=== PATIENT | female | born 1960 | race Caucasian/White ===

== ENCOUNTER 2018-08-17 07:37 | Inpatient (IN) | payer OTHER ==
[~2018-08-17] VITALS: Ht 160 cm; Wt 62.6 kg
[~2018-08-17 07:37] MED LIST: FLAGYL500 MG PO; FOLIC ACID1 MG PO; IBU800 M1 PO; LAC PO; LEVAQUIN500 MG PO; MET2.5 PO; PRILOSEC20 MG PO
[2018-08-17 07:43] VITALS: Ht 160 cm; Wt 62.6 kg
[2018-08-17 08:22] LABS: BASOPHIL % 0.6 % (0-2)
[2018-08-17 08:47] LABS: CALCIUM 8.3 mg/dL (8.5-10.1); CARBON DIOXIDE 25.3 mmol/L (21-32); CHLORIDE SERUM 106 mmol/L (98-107); CREATININE SERUM 0.5 mg/dL (0.6-1.0); GFR1 > 60 mL/min; GLUCOSE SERUM 123 mg/dL (74-106); POTASSIUM SERUM 4.4 mmol/L (3.5-5.1); SODIUM SERUM 139 mmol/L (136-145)
[2018-08-17 08:51] LABS: ALKALINE PHOSPHATASE 54 U/L (46-116); ALT/SGPT 16 U/L (14-59); AST/SGOT 11 U/L (15-37); TOTAL PROTEIN, SERUM 6.9 g/dL (6.4-8.2)
[2018-08-17 08:52] LABS: RED CELL DISTRIBUTION WIDTH 19.1 % (11.5-14.5)
[2018-08-17 08:56] LABS: ALBUMIN 3.3 g/dL (3.4-5.0)
[2018-08-17] MEDS ORDERED: METHOTREXATE SOD (10:05)
[2018-08-17] MEDS ORDERED: OMEPRAZOLE40 M1 PO (10:06)
[2018-08-17 10:34] LABS: rbc morphology (normal/abnorm) ABNORMAL (NORMAL)
[2018-08-17 11:12] VITALS: BP 107/61
[2018-08-17 11:30] LABS: PHOSPHOROUS 3.3 mg/dL (2.5-4.9)
[2018-08-17 11:31] LABS: CHOLESTEROL/HDL RATIO 5.7
[2018-08-17 11:41] LABS: IRON 95 ug/dL (50-170)
[2018-08-17 11:48] LABS: TOTAL IRON BINDING CAPACITY 460 ug/dL (250-450)
[2018-08-17 12:07] LABS: RED BLOOD CELLS 2.81 M/mm3 (4.10-5.10)
[2018-08-17 14:20] LABS: PLATELET COUNT 492 x10^3mcL (130-400)
[2018-08-17 15:48] VITALS: BP 102/58
[2018-08-17 16:51] LABS: PLATELET COUNT 446 x10^3mcL (130-400)
[2018-08-17 21:22] VITALS: BP 105/63
[2018-08-17 23:19] LABS: microscopic required? NO
[2018-08-18 00:12] LABS: urine erythrocyte NEGATIVE (NEGATIVE)
[2018-08-18 05:06] VITALS: BP 102/48
[2018-08-18 06:50] LABS: CALCIUM 8.2 mg/dL (8.5-10.1); CARBON DIOXIDE 22.5 mmol/L (21-32); CHLORIDE SERUM 109 mmol/L (98-107); CREATININE SERUM 0.5 mg/dL (0.6-1.0); GFR1 > 60 mL/min; GLUCOSE SERUM 97 mg/dL (74-106); MAGNESIUM 2.1 mg/dL (1.8-2.4); PHOSPHOROUS 3.6 mg/dL (2.5-4.9); POTASSIUM SERUM 4.2 mmol/L (3.5-5.1); SODIUM SERUM 141 mmol/L (136-145)
[2018-08-18 07:36] LABS: BASOPHIL % 0.6 % (0-2)
[2018-08-18 07:37] LABS: PLATELET COUNT 414 x10^3mcL (130-400); RED CELL DISTRIBUTION WIDTH 19.5 % (11.5-14.5)
[2018-08-18 09:39] VITALS: BP 95/53
[2018-08-18 12:15] VITALS: BP 103/57
[2018-08-18] MEDS ORDERED: NATURAL IRON65 MG PO (16:19)
[2018-08-18] MEDS ORDERED: METP PO (16:19)
[2018-08-18 17:02] VITALS: BP 114/69
[2018-08-18 17:18] VITALS: BP 112/66
== END 2018-08-18 18:28 | disposition home or self-care (01) | DRG 377 ==
LOC: ED 07:37 → DU 09:59
PROVIDERS: General Practice; Internal Medicine Gastroenterology; Specialist
PROC: 3E02340 Introduction of Influenza Vaccine into Muscle, Percutaneous Approach (ICD-10-PCS; 2018-08-17)
PROC: 0DB68ZX Excision of Stomach, Via Natural or Artificial Opening Endoscopic, Diagnostic (ICD-10-PCS; principal; 2018-08-18 11:30)
PROC: 0DJD8ZZ Inspection of Lower Intestinal Tract, Via Natural or Artificial Opening Endoscopic (ICD-10-PCS; 2018-08-18 11:30)
DX: K92.2 Gastrointestinal hemorrhage, unspecified (principal); N17.0 Acute kidney failure with tubular necrosis; E44.1 Mild protein-calorie malnutrition; D50.0 Iron deficiency anemia secondary to blood loss (chronic); K57.30 Diverticulosis of large intestine without perforation or abscess without bleeding; R73.03 Prediabetes; K64.9 Unspecified hemorrhoids; M06.9 Rheumatoid arthritis, unspecified; Z66 Do not resuscitate; K21.9 Gastro-esophageal reflux disease without esophagitis; Z68.24 Body mass index [BMI] 24.0-24.9, adult; Z79.1 Long term (current) use of non-steroidal anti-inflammatories (NSAID); Z83.3 Family history of diabetes mellitus; Z82.49 Family history of ischemic heart disease and other diseases of the circulatory system; Z80.1 Family history of malignant neoplasm of trachea, bronchus and lung; Z98.51 Tubal ligation status; Z23 Encounter for immunization
CPT/HCPCS: 43235; 45378; 90658; C9113; J1200; J1610; J2250; J2310; J2405; J2916; J3010; J3490; J7030; P9016; Q0092; Q0163

== ENCOUNTER 2018-09-11 14:33 | Emergency (ER) | payer OTHER ==
[~2018-09-11] VITALS: Ht 167.6 cm; Wt 60.3 kg
[~2018-09-11 14:33] MED LIST changes: +METHOTREXATE SOD; +METP PO; +NATURAL IRON65 MG PO; +OMEPRAZOLE40 M1 PO
[2018-09-11 14:41] VITALS: Ht 167.6 cm; Wt 60.3 kg
[2018-09-11 15:23] LABS: PLATELET COUNT 403 x10^3mcL (130-400); RED CELL DISTRIBUTION WIDTH 24.3 % (11.5-14.5)
[2018-09-11 15:33] LABS: CARBON DIOXIDE 27.9 mmol/L (21-32); CHLORIDE SERUM 103 mmol/L (98-107); CREATININE SERUM 0.6 mg/dL (0.6-1.0); GFR1 > 60 mL/min; GLUCOSE SERUM 127 mg/dL (74-106); POTASSIUM SERUM 3.6 mmol/L (3.5-5.1); SODIUM SERUM 140 mmol/L (136-145)
[2018-09-11 15:36] LABS: BAND NEUTROPHIL 1 % (0-10); BASOPHIL 0 % (0-2); MONOCYTE 3 % (0-7); SEGMENTED NEUTROPHILS 85 % (37-75); rbc morphology (normal/abnorm) ABNORMAL (NORMAL)
[2018-09-11 15:37] LABS: PLATELET MORPHOLOGY PLATELETS NORMAL; ovalocyte/elliptocyte 1+
[2018-09-11 15:39] LABS: ALBUMIN 3.9 g/dL (3.4-5.0); ALKALINE PHOSPHATASE 74 U/L (46-116); AMYLASE 44 U/L (25-115); AST/SGOT 13 U/L (15-37); BILIRUBIN TOTAL 0.33 mg/dL (0.20-1.00); LIPASE 78 IU/L (73-393); TOTAL PROTEIN, SERUM 7.6 g/dL (6.4-8.2)
[2018-09-11 15:49] LABS: ALT/SGPT 26 U/L (14-59)
[2018-09-11 18:50] VITALS: BP 120/75
== END 2018-09-11 18:50 | disposition home or self-care (01) ==
LOC: ED 14:33
PROVIDERS: Emergency Medicine
DX: R10.13 Epigastric pain (principal); Z87.19 Personal history of other diseases of the digestive system
CPT/HCPCS: J1885; J2405; Q0092

== ENCOUNTER 2019-06-27 09:01 | Inpatient (IN) | payer OTHER ==
[~2019-06-27] VITALS: Ht 160 cm; Wt 57.6 kg
[2019-06-27 09:12] VITALS: Ht 160 cm; Wt 57.6 kg
--- NOTE | 2019-06-27 09:15 | NUR ---
EDUCATED PT TO GIVE CLEAN CATCH URINE SPECIMEN, AMBULATED TO RESTROOM, THEN TO ED LOBBY TO AWAIT ED BED, NO ACUTE DISTRESS NOTED.
--- NOTE | 2019-06-27 09:33 | NUR ---
PT BIB C/O R FLANK PAIN RADIATING TO RUQ X4 WEEKS WITH DYSURIA AND "DARK ALMOST BLACK STOOL SINCE JULY AFTER I STARTED TAKING IRON FOR MY ANEMIA", PT REPORTS DIZZINESS THIS AM, DENIES AT THIS TIME. PT DENIES CP, SOB, AND WEAKNESS. PT'S AT BEDSIDE, NAD NOTED, RESPS E/U. CALL LIGHT WITHIN REACH, IN POSITION OF COMFORT, EVANGELINA RAILS RAISED FOR SAFETY.
--- NOTE | 2019-06-27 10:25 | NUR ---
DR JORGE AT BEDSIDE FOR MSE.
--- NOTE | 2019-06-27 10:26 | NUR ---
PT STS SHE WAS HERE IN 2017 AND RECEIVED A BLOOD TRANSFUSION FROM A GI BLEED. DR JORGE AT BEDSIDE.
--- NOTE | 2019-06-27 10:45 | NUR ---
XRAY AT BEDSIDE.
[2019-06-27 10:54] LABS: microscopic required? NO
--- NOTE | 2019-06-27 11:00 | NUR ---
US AT BEDSIDE.
--- NOTE | 2019-06-27 11:00 | NUR ---
ATTEMPTED TO DO ORHTOSTATICS, US AT BEDSIDE WAITING, PER DR LUISITO MESSINA TO HOLD ORTHOSTATS AND COMPLETE US.
[2019-06-27 11:01] LABS: BASOPHIL % 0.4 % (0-2); PLATELET COUNT 282 x10^3mcL (130-400); RED CELL DISTRIBUTION WIDTH 14.6 % (11.5-14.5)
[2019-06-27 11:02] LABS: UA SPECIFIC GRAVITY <=1.005 (1.005-1.035); urine erythrocyte NEGATIVE (NEGATIVE)
[2019-06-27 11:17] LABS: CARBON DIOXIDE 28.4 mmol/L (21-32); CHLORIDE SERUM 105 mmol/L (98-107); CREATININE SERUM 0.6 mg/dL (0.6-1.0); GFR1 > 60 mL/min; GLUCOSE SERUM 104 mg/dL (74-106); POTASSIUM SERUM 4.1 mmol/L (3.5-5.1); SODIUM SERUM 142 mmol/L (136-145)
[2019-06-27 11:30] LABS: ALBUMIN 4.1 g/dL (3.4-5.0); ALKALINE PHOSPHATASE 53 U/L (46-116); ALT/SGPT 27 U/L (14-59); AST/SGOT 15 U/L (15-37); BILIRUBIN TOTAL 0.6 mg/dL (0.20-1.00); CHOLESTEROL 198 mg/dL (<200); HDL CHOLESTEROL 36 mg/dL (40-60); LIPASE 83 IU/L (73-393); T4(THYROXINE) 9.8 ug/dL (4.7-13.3); TOTAL PROTEIN, SERUM 7.1 g/dL (6.4-8.2)
--- NOTE | 2019-06-27 11:47 | NUR ---
PT MEDICATED PER EMAR, NAD NOTED, ON FULL CM, DAUGHTER AT BEDSIDE.
[2019-06-27] MEDS ORDERED: [UNRECOGNIZED DRUG - OTHER] IM (12:23)
[2019-06-27] MEDS ORDERED: TYLENOL ARTHRI650 MG PO (12:23)
[2019-06-27] MEDS ORDERED: MASON NATURAL1000 IU PO (12:24)
[2019-06-27] MEDS ORDERED: VITRON C PO (12:24)
[2019-06-27] MEDS ORDERED: NATURE'S BLEND F1 MG PO (12:25)
--- NOTE | 2019-06-27 13:36 | NUR ---
RPEORT GIVEN TO EDISON ALFARO TO ASSUME CARE OF PT.
[2019-06-27 14:42] VITALS: BP 115/63
--- NOTE | 2019-06-27 14:53 | NUR ---
RECEIVED PT FROM ER, PT ADMIT FOR GI BLEED, PT IS A/O X4, VERBAL RESPONSIVE, LUNG SOUND CLEAR BILATERAL, NO COUGH, NO SOB, PT IS ON TELE 4, NSR, DENY ANY CHEST PAIN OR DISCOMFORT, BOWEL SOUND PRESENT ALL 4 QUADRANTS, NO DISTENTION, PT C/O RIGHT FLANK PAIN 10/, STATE HAD BEEN BLACK STOOL SINCE LAST YEAR BECAUSE SHE TAKES IRON PILLS, PEDAL PULSE PRESENT BOTH FEET, NO EDEMA, IV AT RIGHT HAND, NO LEAKING, NO INFITLRATION. ALL ADLS ASSIST, ALL NEED MET, CALL LIGHT IN REACH, WILL CONTINUE TO MONITOR.
[2019-06-27 17:08] VITALS: BP 136/73
--- NOTE | 2019-06-27 18:20 | NUR ---
DR. CORTES IS AT BEDSIDE TO SEE THE PATIENT AND TALKS TO THE FAMILY.
--- NOTE | 2019-06-27 18:41 | NUR ---
PATIENT IS RESTING IN BED WITH RELIEVED PAIN AT RIGHT FLANK. THE PATIENT TOLERATED WITH REGULAR DIET. THE FAMILY IS AT BEDSIDE.
--- NOTE | 2019-06-27 19:18 | NUR ---
Text message Dr Fuentes to get approval for MRI/MRCP to r/o CBD stricture or stone. awaiting approval.
--- NOTE | 2019-06-27 19:22 | NUR ---
received approval from dr Fuentes.
--- NOTE | 2019-06-27 19:23 | NUR ---
spoke to SAURAV chery and informed her that Dr Fuentes approved MRI.
--- NOTE | 2019-06-27 19:37 | NUR ---
spoke to assigned nurse nixon-terri, informed her that an approval was given by Dr Fuentes for MRI/MRP CBD TO r/o stricture/stone.
--- NOTE | 2019-06-27 19:45 | NUR ---
PT. AWAKE, ALERT, ORIENTED X4. DENIES HEADACHE OR DIZZINESS. BREATH SOUNDS CLEAR THROUGHOUT LUNG BENOIT, RESP. EVEN, UNLABORED. NO SOB NOTED. PT. ON RA. ABD. SOFT AND ROUND, BOWEL SOUNDS ACTIVE. C/O INTERMITTENT ABD PAIN THAT RADIATES FROM HER BACK AREA, FLANK SIDE. DENIES NAUSEA. NO EDEMA NOTED TO BLE. PEDAL PULSES STRONG EVANGELINA. IVF INFUSING WELL, SITE INTACT. FAMILY AT BEDSIDE.
[2019-06-27 21:07] VITALS: BP 127/67
--- NOTE | 2019-06-27 22:15 | NUR ---
PT. C/O ABD. PAIN. PRN MORPHINE WAS GIVEN ORDERED. PT. RESTING QUIETLY NOW, EYES CLOSED. NO OBVIOUS SIGNS OF DISTRESS. WILL MONITOR.
--- NOTE | 2019-06-27 22:17 | NUR ---
RECEIVED REPORT FROM DAY NURSE REGARDING PT.'S MRI MRCP FOR TOMORROW. PER FABRICIO, MOBILITY DEVELOPER, PROCEDURE WAS AUTHORIZED. AUTO CLAIMS ADJUSTER, DESTINI, STATED THAT HE WAS NOT SURE IF HE WOULD BE AVAILABLE TOMORROW FOR PLANNED MRCP. DR. PHELPS WAS MADE AWARE AND DR. CORTES WAS ALSO MADE AWARE. AUTO CLAIMS ADJUSTER STATED THAT HE WOULD BE AVAILABLE ON THURSDAY TO DO EXAM. DR. CORTES MADE AWARE AND STATED THAT IT WAS OKAY TO DO PROCEDURE ON THURSDAY. AUTO CLAIMS ADJUSTER, DESTINI, STATED THAT PROCEDURE COULD BE DONE ON Thursday.
[2019-06-28 00:35] LABS: AMPHETAMINE QUAL UR NONE DETECTED (See below)
--- NOTE | 2019-06-28 02:06 | NUR ---
PT. AWAKENED, USED BATHROOM AND WENT BACK TO BED. PT. DEVELOPED INCREASED IN ABD PAIN, RT. QUADRANT WHICH SOMETIMES RADIATES FROM HER RT. FLANK AREA TO HER STOMACH. PAIN LEVEL 6/10. PRN MORPHINE IVP GIVEN ORDEREF. WILL MONITOR. CALL LIGHT REMAINS WITHIN REACH.
[2019-06-28 05:42] VITALS: BP 99/56
[2019-06-28 06:45] LABS: ALKALINE PHOSPHATASE 38 U/L (46-116); ALT/SGPT 23 U/L (14-59); AST/SGOT 12 U/L (15-37); BILIRUBIN TOTAL 0.8 mg/dL (0.20-1.00); CALCIUM 8.1 mg/dL (8.5-10.1); CARBON DIOXIDE 27.3 mmol/L (21-32); CHLORIDE SERUM 112 mmol/L (98-107); CREATININE SERUM 0.5 mg/dL (0.6-1.0); GFR1 > 60 mL/min; GLUCOSE SERUM 85 mg/dL (74-106); POTASSIUM SERUM 3.7 mmol/L (3.5-5.1); SODIUM SERUM 144 mmol/L (136-145)
[2019-06-28 06:55] LABS: ALBUMIN 3.3 g/dL (3.4-5.0); TOTAL PROTEIN, SERUM 5.8 g/dL (6.4-8.2)
[2019-06-28 07:05] LABS: BASOPHIL % 0.3 % (0-2); PLATELET COUNT 241 x10^3mcL (130-400)
[2019-06-28 07:15] LABS: RED CELL DISTRIBUTION WIDTH 14.9 % (11.5-14.5)
--- NOTE | 2019-06-28 07:25 | NUR ---
AAO X4.DENIES ANY PAIN/DISCOMFORT.LUNGS CLEAR.ON SR ON MONITOR # 4.HR=86.ABDOMEN SOFT NON-TENDER.ACTIVE BOWEL SOUND.IVF NS GOING AT 100 ML/JR INFUSING WELL.CALL LIGHT WITHIN REACH.INSTRUCTED TO CALL FOR ANY PAIN/DISCOMFORT.WILL CONTINUE TO MONITOR PT.
[2019-06-28 09:14] VITALS: BP 105/62
--- NOTE | 2019-06-28 11:00 | NUR ---
MRI CHECKLIST COMPLETED.
[2019-06-28 13:07] VITALS: BP 103/64
[2019-06-28 16:55] VITALS: BP 111/68
--- NOTE | 2019-06-28 18:23 | NUR ---
NO SIGNIFICANT CHANGE NOTED.WILL ENDORSE TO NEXT SHIFT.
--- NOTE | 2019-06-28 19:29 | NUR ---
PT. AWAKE, ALERT, SITTING UP IN BED, FAMILY AT BEDSIDE. PT. ORIENTED X4, DENIES HEADACHE OR DIZZINESS. BREATH SOUNDS CLEAR THROUGHOUT LUNG BENOIT, RESP. EVEN, UNLABORED. NO SOB NOTED. PT. ON RA. NSR ON TELE #4. NO ECTOPIES NOTED. ABD. SOFT AND ROUND, DENIES NAUSEA. SOME ABD. PAIN, DENIES NEED FOR PAIN MEDICATION AT THIS TIME. BOWEL SOUNDS ACTIVE. NO EDEMA TO EXTREMITIES. PEDAL PULSES STRONG. CALL LIGHT WITHIN REACH.
[2019-06-28 21:14] VITALS: BP 103/76
--- NOTE | 2019-06-29 00:26 | NUR ---
PT. SLEEPING. NO C/O PAIN THUS FAR. CALL LIGHT WITHIN REACH. WILL CONTINUE TO MONITOR.
[2019-06-29 04:55] VITALS: BP 117/60
[2019-06-29 06:32] LABS: CALCIUM 8.1 mg/dL (8.5-10.1); CARBON DIOXIDE 25.9 mmol/L (21-32); CHLORIDE SERUM 109 mmol/L (98-107); CREATININE SERUM 0.5 mg/dL (0.6-1.0); GFR1 > 60 mL/min; GLUCOSE SERUM 100 mg/dL (74-106); MAGNESIUM 1.9 mg/dL (1.8-2.4); PHOSPHOROUS 3.5 mg/dL (2.5-4.9); POTASSIUM SERUM 3.9 mmol/L (3.5-5.1); SODIUM SERUM 143 mmol/L (136-145)
--- NOTE | 2019-06-29 07:30 | NUR ---
RECEIVED PATIENT IN BED AWKAE ALERT AND ORIENTED. DENIES ANY PAIN AT THIS TIME. IVF INFUSING WELL SITE PATENT. ABD SOFT AND ROUND, BOWEL SOUNDS ACTIVE. DENIES ANY N/V/D. AMBULATES AD SWEETIE WITH STEADY GAIT. RESP EVEN AND UNLABORED, LUNGS CLEAR ON ROOM AIR. NO EDEMA NOTED, PULSES PALABLE. NO ACUTE DISTRESS NOTED.
[2019-06-29 07:52] LABS: BASOPHIL % 0.3 % (0-2); PLATELET COUNT 264 x10^3mcL (130-400)
[2019-06-29 07:53] LABS: RED CELL DISTRIBUTION WIDTH 14.6 % (11.5-14.5)
[2019-06-29 09:34] VITALS: BP 117/65
[2019-06-29 12:59] VITALS: BP 115/74
--- NOTE | 2019-06-29 13:11 | NUR ---
PATIENT REMAINS IN BED WITH IVF INFUSING WELL. AMBLATES TO THE BATHROOM PRN. NPO FOR MRCP TODAY. PATIENT C/O HAVING A H/A 8/10 ON THE PAIN SCALE. MEDICATED WITH NORCO PO ORDERED. WILL MONITOR FOR EFFECT.
--- NOTE | 2019-06-29 15:26 | NUR ---
PATIENT IS SITTIING UP IN CHAIR AT BEDSIDE TALKING TO VISITOR. PER PATIENT HER H/A HAS NOW SUBSIDED TO 0/10 ON THE PAIN SCALE.
--- NOTE | 2019-06-29 16:03 | NUR ---
PATIENT IS DOWN FOR MRI VIA W/C AT THIS TIME. WILL CONTINUE TO MONITOR UPON RETURN TO UNIT.
--- NOTE | 2019-06-29 16:40 | NUR ---
PATIENT RETURNED FROM MRI VIA W/C. BACK IN BED. TELE IN PLACE. DENIES ANY PAIN OR DISCOMFORT. IVF INFUSING WELL. VISITOR AT BEDSIDE. PATIENT REMAINS NPO AT THIS TIME.
--- NOTE | 2019-06-29 16:59 | NUR ---
PATIENT'S PLAN OF CARE WAS DISCUSSED AND REVIEWED WITH LEARNING AND DEVELOPMENT SPECIALIST:AIDE MICHAELS. I HAVE REVIEWED THE DATA COLLECTION BY LEARNING AND DEVELOPMENT SPECIALIST (NAME): AIDE MICHAELS. ENTERED ON (DATE/TIME):06/29/19. I CONCUR WITH THE DATA AND ANY EXCEPTIONS OR COMMENTS ARE LISTED BELOW:
[2019-06-29 18:02] VITALS: BP 120/76
[2019-06-29 19:42] VITALS: BP 122/70
--- NOTE | 2019-06-29 21:09 | NUR ---
RECEIVED PT IN BED AAOX4 DENY ABD PAIN AT THE MOMENT , BS ACTIVE X4 QUADRANT ABD SOFT BS ACTIVE X4 , PT DENY ABD PAIN AT THE MOMENT , PIV INTACT INFUSING WELL , CALL LIGHT WITHIN PT'S REACH .
--- NOTE | 2019-06-30 02:57 | NUR ---
I HAVE REVIEWED THE DATA COLLECTION BY STUNT PERFORMER (NAME):LEILA DE LEÓN ENTERED ON (DATE/TIME): I CONCUR WITH THE DATA AND ANY EXCEPTIONS OR COMMENTS ARE LISTED BELOW:
[2019-06-30 04:52] VITALS: BP 120/73
--- NOTE | 2019-06-30 06:29 | NUR ---
NO CHANGES OF CONDITION NOTED, ALL DUE MEDS GIVEN NO REACTION NOTED , PIV INTACT INUSING WELL , PT'S AWAKE DENY ABD [PAIN.
[2019-06-30 06:37] LABS: BASOPHIL % 0.4 % (0-2); PLATELET COUNT 258 x10^3mcL (130-400)
[2019-06-30 06:39] LABS: CALCIUM 8.2 mg/dL (8.5-10.1); CARBON DIOXIDE 23.9 mmol/L (21-32); CHLORIDE SERUM 109 mmol/L (98-107); CREATININE SERUM 0.5 mg/dL (0.6-1.0); GFR1 > 60 mL/min; GLUCOSE SERUM 86 mg/dL (74-106); MAGNESIUM 1.8 mg/dL (1.8-2.4); PHOSPHOROUS 4.3 mg/dL (2.5-4.9); POTASSIUM SERUM 3.7 mmol/L (3.5-5.1); SODIUM SERUM 144 mmol/L (136-145)
[2019-06-30 06:50] LABS: RED CELL DISTRIBUTION WIDTH 14.6 % (11.5-14.5)
--- NOTE | 2019-06-30 07:20 | NUR ---
RECEIVED PT FROM NIGHT NURSE. PT IS LAYING DOWN IN BED WITH HOB UP RESTING. PT LOOKS TO BE IN NO ACUTE DISTRESS AT THIS TIME AND DENIES ANY PAIN. IV SITE PATENT WITH NO SIGNS OF ERYTHEMA OR SWELLING WITH IV FLUIDS INFUSING. RESPIRATIONS EVEN AND UNLABORED ON ROOM AIR. CALL LIGHT WITHIN REACH. WILL CONITNUE TO MONITOR.
[2019-06-30 08:55] VITALS: BP 118/65
[2019-06-30 09:29] VITALS: BP 131/85
--- NOTE | 2019-06-30 09:30 | NUR ---
PT IV SITE SWOLLEN WITH NO SIGNS OF ERYTHEMA, INFORMED PT TO ELEVATE ARM ABOVE LEVEL OF HEAD AND WILL START NEW IV
[2019-06-30] MEDS ORDERED: PANTOPRAZOLE SO40 M1 PO (11:37)
[2019-06-30] MEDS ORDERED: IBU-200200 M1 PO (11:38)
[2019-06-30 14:00] VITALS: BP 121/66
[2019-06-30] MEDS ORDERED: TYLOPHEN500 MG PO (14:05)
--- NOTE | 2019-06-30 14:30 | NUR ---
PT AWAKE, ALERT AND ORIENTED AT TIME OF DISCHARGE. PT LOOKS TO BE IN NO ACUTE DISTRESS AND DENIES ANY PAIN AT TIME OF DISCHARGE. PT DSICHARGED HOME AND WALKED TO LOBBY ACCOMPANIED BY NURSE AND FAMILY MEMBER WITH BELONGINGS IN HAND. PROVIDED PT WITH PRESCRIPTIONS AND EDUCATION. PT AND FAMILY MEMBER VERBALIZED UNDERSTANDING. INFORMED PT OF FOLLOW UP APPOINTMENT AND THE IMPORTANCE OF GOING TO FOLLOW UP APPOINTMENT, PT AND FAMILY MEMBER VERBALIZED UNDERSTANDING. IV REMOVED AND CATHETER FULLY INTACT. TELE MONITOR REMOVED AND RETURNED TO TELE STATION. ALL QUESTIONS AND CONCERNS ADDRESSED.
== END 2019-06-30 14:38 | disposition home or self-care (01) | DRG 392 ==
LOC: ED 09:01 → DU 13:18
PROVIDERS: Emergency Medicine; Family Medicine; Internal Medicine; ADMIT Internal Medicine
DX: R10.11 Right upper quadrant pain (principal); K92.1 Melena; K83.8 Other specified diseases of biliary tract; M06.9 Rheumatoid arthritis, unspecified; Z68.23 Body mass index [BMI] 23.0-23.9, adult; Z98.51 Tubal ligation status; Z80.1 Family history of malignant neoplasm of trachea, bronchus and lung; Z83.3 Family history of diabetes mellitus; Z82.49 Family history of ischemic heart disease and other diseases of the circulatory system
CPT/HCPCS: 74181; 82962; 83880; C9113; G0378; G0480; J2270; J3490; J7030; Q0092